=== PATIENT | male | born 1980 | race Caucasian/White ===

== ENCOUNTER 2017-04-21 12:02 | Emergency (ER) | payer SELFPAY ==
[~2017-04-21] VITALS: Ht 190.5 cm; Wt 134.0 kg
[~2017-04-21 12:02] MED LIST: FOLI1 PO; THERM PO; THIA100T PO
[2017-04-21 12:05] VITALS: BP 152/91; PULSE 77; RESP 18; TEMP 98.3; O2SAT 97
--- NOTE | 2017-04-21 12:27 | PD ---
HPI Chief Complaint: Musculoskeletal Complaint Time Seen by Provider: 12:11 Travel History International Travel<30 days: No Contact w/Intl Traveler<30days: No Traveled to known affect area: No History of Present Illness HPI 37-year-old male presents emergency department for evaluation of left elbow pain. Patient reports that while at work lifting a heavy piece of glass he felt sharp pain in the lateral aspect of his left elbow. He reports at the time of the event he felt a tearing sensation within the elbow. The pain has become increasingly more painful and swollen prompting his visit to the ER today. He reports the pain is localized within the left elbow, nonradiating, worse with movement, relieved with rest severity 6 out of 10. No previous trauma or surgeries to this elbow. PFSH Past Medical History Narrative Medical Significant for hypertension. Asthma: No Blood Disorders: No Heart Rhythm Problems: No Cancer: No Cardiovascular Problems: Yes (HTN, out of meds ) High Cholesterol: No Chest Pain: No Congestive Heart Failure: No COPD: No Diminished Hearing: No Endocrine: No Gastrointestinal Disorders: No Genitourinary: No Herniated Disk: Yes Hypertension: Yes (NO MEDS) Immune Disorder: No Implanted Vascular Access Dvce: No Musculoskeletal: No Neurologic: No Psychiatric: No Reproductive: No Respiratory: No Immunizations Current: Yes Sleep Apnea: No Influenza Vaccination: No ?: Not Past Surgical History Other Surgery: Yes (knee sx) Social History Alcohol Use: Yes (WEEKENDS) Tobacco Use: No Substance Use: Yes (COCAINE) Allergies-Medications (Allergen,Severity, Reaction): Coded Allergies: No Known Allergies (Unverified , 04/21/17) Reported Meds & Prescriptions Reported Meds & Active Scripts Active Ibuprofen 800 Mg Tab 800 Mg PO Q8H PRN Thiamine HCl 100 Mg Tab 100 Mg PO DAILY 5 Days Folate 1 Mg Tab (Folic Acid) 1 Mg Tab 1 Mg PO DAILY 5 Days Thera M Plus (Multivitamins/Minerals Therap) 1 Tab Tab 1 Tab PO DAILY 30 Days Review of Systems Except as stated in HPI: all other systems reviewed are Neg Physical Exam Narrative GENERAL: Well-nourished, well-developed patient. SKIN: Focused skin assessment warm/dry. HEAD: Normocephalic. EYES: No scleral icterus. No injection or drainage. NECK: Supple, trachea midline. No JVD or lymphadenopathy. CARDIOVASCULAR: Regular rate and rhythm without murmurs, gallops, or rubs. RESPIRATORY: Breath sounds equal bilaterally. No accessory muscle use. GASTROINTESTINAL: Abdomen soft, non-tender, nondistended. MUSCULOSKELETAL: No cyanosis, or edema. Left elbow: Pain and tenderness to the lateral aspect. Patient has full range of motion although flexion causes pain. No joint effusion. 2+ distal pulses. Normal sensation in the extremity. No deformity. BACK: Nontender without obvious deformity. No CVA tenderness. Data Data Last Documented VS Orders Elbow, Complete (4 Vws) (04/21/17 ) Support Splint (04/21/17 13:35) Sling Cradle Arm (04/21/17 ) MDM Medical Decision Making Medical Screen Exam Complete: Yes Emergency Medical Condition: Yes Differential Diagnosis Elbow painsprain versus strain versus fracture Narrative Course 37-year-old male presents emergency Department with left elbow pain after lifting a heavy piece of glass today. On exam he has point tenderness to the lateral aspect of the elbow. He has full range of motion although with pain. No joint effusion. No deformity. Extremities neurovascular intact. X-ray of the left elbow negative for fracture no effusion. Patient will be treated for left elbow sprain/strain. Arm put in a sling. NSAIDs and follow-up with PCP. Patient is in agreement to this plan Diagnosis Primary Impression: Elbow sprain Qualified Code: S53.402A - Elbow sprain, left, initial encounter Referrals: Primary Care Physician Departure Forms: Tests/Procedures, Work Release Special Instructions: LIGHT DUTY FOR 1 WEEK. Scripts Ibuprofen 800 Mg [id number] Mg PO Q8H PRN (Pain/Inflammation) #30 TAB Prov:Shasha Azar 04/21/17 Disposition: 01 DISCHARGE HOME Condition: Stable Shasha Azar Apr 21, 2017 12:27 Disposition: 01 DISCHARGE HOME Condition: Stable Shasha Azar Apr 21, 2017 12:27
[2017-04-21] MEDS ORDERED: IBUP800T23 PO (13:35)
--- NOTE | 2017-04-21 13:41 | RADRPT ---
EXAM DATE/TIME: 04/21/2017 12:18 [facility] COMPARISON: CHEST SINGLE AP, May 08, 2016, 12:06. INDICATIONS : Left elbow pain while lifting glass this morning. MEDICAL HISTORY : Hypertension. Herniated disk. SURGICAL HISTORY : Right knee. Right thumb. ENCOUNTER: Initial ACUITY: 1 day PAIN SCORE: 9/10 LOCATION: Left elbow. FINDINGS: Multiple view examination of the left elbow demonstrates no soft tissue swelling, joint effusion, or fracture. The osseous structures are in normal alignment. Bony mineralization is normal. CONCLUSION: 1. Negative examination. Joselo Mcarthur MD on April 21, 2017 at 13:37 Board Certified Radiologist. This report was verified electronically.
== END 2017-04-21 13:51 | disposition home or self-care (01) ==
LOC: PHEFT 12:02
DX: S53.402A Unspecified sprain of left elbow, initial encounter (principal); I10 Essential (primary) hypertension; X50.0XXA Overexertion from strenuous movement or load, initial encounter; Y93.89 Activity, other specified; Y92.89 Other specified places as the place of occurrence of the external cause; Y99.0 Civilian activity done for income or pay
CPT/HCPCS: 73080; 99283

== ENCOUNTER 2017-07-05 05:23 | Emergency (ER) | payer SELFPAY ==
[~2017-07-05] VITALS: Ht 190.5 cm; Wt 135.4 kg
[~2017-07-05 05:23] MED LIST changes: +IBUP800T23 PO
[2017-07-05 05:32] VITALS: BP 169/98; PULSE 82; RESP 16; TEMP 98; O2SAT 97
--- NOTE | 2017-07-05 06:05 | PD ---
HPI Chief Complaint: ENT Complaint Time Seen by Provider: 05:55 Travel History International Travel<30 days: No Contact w/Intl Traveler<30days: No Traveled to known affect area: No History of Present Illness HPI The patient is a 37-year-old male that has had a bilaterally painful throat for 3 days. Initially, he had pain on both sides of the throat and now he starting to get pain more on the right side. He denies any airway obstruction. He denies any fever. He denies any major medical problems and he is not on any medications. He has had chills but has not recorded a fever at home. PFSH Past Medical History Asthma: No Blood Disorders: No Heart Rhythm Problems: No Cancer: No Cardiovascular Problems: Yes (HTN, out of meds ) High Cholesterol: No Chest Pain: No Congestive Heart Failure: No COPD: No Diminished Hearing: No Endocrine: No Gastrointestinal Disorders: No Genitourinary: No Herniated Disk: Yes Hypertension: Yes (NO MEDS) Immune Disorder: No Implanted Vascular Access Dvce: No Musculoskeletal: No Neurologic: No Psychiatric: No Reproductive: No Respiratory: No Immunizations Current: Yes Sleep Apnea: No Tetanus Vaccination: < 5 Years Influenza Vaccination: No Past Surgical History Other Surgery: Yes (knee sx) Social History Alcohol Use: Yes (WEEKENDS) Tobacco Use: No Substance Use: No Allergies-Medications (Allergen,Severity, Reaction): Coded Allergies: No Known Allergies (Unverified , 07/05/17) Reported Meds & Prescriptions Reported Meds & Active Scripts Active Review of Systems Except as stated in HPI: all other systems reviewed are Neg Physical Exam Narrative GENERAL: The patient is alert, oriented 3 in moderate apparent distress with his throat discomfort. His vital signs show blood pressure 169/98 but otherwise normal. SKIN: Focused skin assessment warm/dry. HEAD: Atraumatic. Normocephalic. EYES: Pupils equal and round. No scleral icterus. No injection or drainage. ENT: No nasal bleeding or discharge. Mucous membranes pink and moist. The throat is bright red bilaterally there is an exudate on the right side and the uvula is in midline. There is swelling on the right side which could represent a very early peritonsillar abscess. At this time it is not drainable. NECK: Trachea midline. No JVD. CARDIOVASCULAR: Regular rate and rhythm. No murmur appreciated. RESPIRATORY: No accessory muscle use. Clear to auscultation. Breath sounds equal bilaterally. GASTROINTESTINAL: Abdomen soft, non-tender, nondistended. Hepatic and splenic margins not palpable. MUSCULOSKELETAL: No obvious deformities. No clubbing. No cyanosis. No edema. NEUROLOGICAL: Awake and alert. No obvious cranial nerve deficits. Motor grossly within normal limits. Normal speech. PSYCHIATRIC: Appropriate mood and affect; insight and judgment normal. Data Data Last Documented VS Vital Signs Date Time Temp Pulse Resp B/P (MAP) Pulse Ox O2 Delivery O2 Flow Rate FiO2 07/05/17 05:32 98.0 82 16 169/98 (121) 97 Orders Orders Complete Blood Count With Diff (07/05/17 05:56) Basic Metabolic Panel (Bmp) (07/05/17 05:56) Group A Rapid Strep Screen (07/05/17 05:56) Monoscreen (07/05/17 05:56) Ceftriaxone Inj (Rocephin Inj) (07/05/17 06:15) Labs Laboratory Tests Test 07/05/17 06:00 White Blood Count 11.8 TH/MM3 Red Blood Count 5.04 MIL/MM3 Hemoglobin 14.6 GM/DL Hematocrit 44.2 % Mean Corpuscular Volume 87.7 FL Mean Corpuscular Hemoglobin 29.1 PG Mean Corpuscular Hemoglobin Concent 33.1 % Red Cell Distribution Width 12.4 % Platelet Count 216 TH/MM3 Mean Platelet Volume 8.0 FL Neutrophils (%) (Auto) 62.2 % Lymphocytes (%) (Auto) 23.0 % Monocytes (%) (Auto) 8.8 % Eosinophils (%) (Auto) 5.6 % Basophils (%) (Auto) 0.4 % Neutrophils # (Auto) 7.3 TH/MM3 Lymphocytes # (Auto) 2.7 TH/MM3 Monocytes # (Auto) 1.0 TH/MM3 Eosinophils # (Auto) 0.7 TH/MM3 Basophils # (Auto) 0.0 TH/MM3 CBC Comment DIFF FINAL Differential Comment Blood Urea Nitrogen 18 MG/DL Random Glucose 114 MG/DL Calcium Level 8.9 MG/DL Sodium Level 140 MEQ/L Potassium Level 3.4 MEQ/L Chloride Level 102 MEQ/L Carbon Dioxide Level 31.0 MEQ/L Anion Gap 7 MEQ/L MDM Medical Decision Making Medical Screen Exam Complete: Yes Emergency Medical Condition: Yes Medical Record Reviewed: Yes Interpretation(s) The CBC shows a white count of 11,800 but is otherwise normal. The strep screen is positive for group A strep antigen. Differential Diagnosis Peritonsillar abscess, strep pharyngitis, infectious mononucleosis, viral pharyngitis-nonspecific, Narrative Course The patient appears to have an early peritonsillar abscess. It is not drainable at this time. He also has a strep pharyngitis and we will treat this with antibiotics. He is told that if the abscess gets larger that we will need to drain it with a needle. At this time the abscess is questionable and small but I suspect that this is an abscess with early formation. He is given IV Rocephin here as well as Augmentin and hopefully this will cause this abscess to go away. Diagnosis Primary Impression: Peritonsillar abscess Additional Impression: Strep pharyngitis Additional Instructions: You do have a strep pharyngitis. Also, you likely have an early peritonsillar abscess. As we discussed, this can get larger or it can go away with the antibiotics. If he gets larger will have to be drained, usually with a needle aspiration. He will need to return to emergency department if there is increase in pain and swelling. Med/Other Pt SpecificInfo: Prescription(s) given Scripts Amoxicillin-Clavulanate (Augmentin) 875-125 Mg Tab 1 TAB PO BID for Infection for 10 Days, TAB 0 Refills Prov: Rick Smith MD 07/05/17 Disposition: 01 DISCHARGE HOME Condition: Stable Rick Smith MD Jul 05, 2017 06:05
[2017-07-05 06:08] LABS: AUTOMATED NEUTROPHIL # 7.3 TH/MM3 (1.8-7.7); BASOPHIL % 0.4 % (0.0-2.0); EOSINOPHIL # 0.7 TH/MM3 (0-0.4); EOSINOPHIL % 5.6 % (0.0-4.0); HEMATOCRIT 44.2 % (39.0-51.0); HEMO FLAGS DIFF FINAL; LYMPHOCYTE # 2.7 TH/MM3 (1.0-4.8); MEAN CELL VOLUME 87.7 FL (80.0-100.0); MEAN CORPUSCULAR HEMOGLOBIN 29.1 PG (27.0-34.0); MEAN CORPUSCULAR HGB CONC 33.1 % (32.0-36.0); MONO % 8.8 % (0.0-8.0); NEUT % 62.2 % (16.0-70.0); PLATELET COUNT 216 TH/MM3 (150-450); RED BLOOD COUNT 5.04 MIL/MM3 (4.50-5.90); RED CELL DISTRIBUTION WIDTH 12.4 % (11.6-17.2); WHITE BLOOD COUNT 11.8 TH/MM3 (4.0-11.0)
[2017-07-05] MEDS ORDERED: cefTRIAXone INJ 2,000 MG in SODIUM CHLORIDE 0.9% INJ 100 ML IV ONE (06:15)
[2017-07-05 06:18] LABS: POTASSIUM 3.4 MEQ/L (3.5-5.1)
[2017-07-05] MEDS ORDERED: AUGM875T3 PO (06:27)
[2017-07-05 07:35] VITALS: BP 138/78
== END 2017-07-05 07:37 | disposition home or self-care (01) ==
LOC: PHED 05:23
DX: J36 Peritonsillar abscess (principal); J02.0 Streptococcal pharyngitis; I10 Essential (primary) hypertension; Z86.79 Personal history of other diseases of the circulatory system
CPT/HCPCS: 80048; 85025; 86308; 87880; 96365; 99284; J0696